=== PATIENT | male | born 1985 | race Caucasian/White ===

== ENCOUNTER 2018-01-03 14:13 | Outpatient (CLI) | payer OTHER ==
--- NOTE | 2018-01-03 14:45 | RAD ---
LUMBAR SPINE THREE VIEWS: History: Low back pain. FINDINGS: Lateral views include neutral, flexion, and extension positioning. Minimal retrolisthesis is present at the L2-3 level without abnormal translation of motion upon flexion or extension. Mild osteophytosis lower facets. IMPRESSION: No acute osseous abnormalities are demonstrated. POS: [facility]
== END 2018-01-03 14:14 | disposition home or self-care (01) ==
LOC: TBSIIMAG 14:13
PROVIDERS: ATTEND Neurological Surgery
DX: M54.5 Low back pain (principal)
CPT/HCPCS: 72100

== ENCOUNTER 2018-04-26 15:51 | Outpatient (CLI) | payer OTHER ==
--- NOTE | 2018-04-26 16:24 | CT ---
CT LUMBAR SPINE NONCONTRAST: History: Low back pain. Back injury. FINDINGS: There are five lumbar type vertebrea. Pedicles are intact. Vertebral body height and alignment are ma intained. No acute fracture or dislocation. Mild disc bulge at the lumbosacral junction. IMPRESSION: No acute osseous abnormalities are demonstrated. Mild disc bulge lower lumbar spine/lumbosacral junct ion. POS: [facility]
== END 2018-04-26 15:52 | disposition home or self-care (01) ==
LOC: SCSCT 15:51
PROVIDERS: ATTEND Neurological Surgery
DX: M51.16 Intervertebral disc disorders with radiculopathy, lumbar region (principal); M51.87 Other intervertebral disc disorders, lumbosacral region
CPT/HCPCS: 72131